=== PATIENT | male | born 2000 | race Asian ===

== ENCOUNTER 2023-07-16 14:47 | Emergency (ER) | payer MEDICAID ==
[~2023-07-16] VITALS: Ht 167.6 cm; Wt 58.5 kg
[2023-07-16 14:53] VITALS: BP_SYST 121; PULSE 62; RESP 18; TEMP 98.3; O2SAT 100
[2023-07-16] MEDS: PROCHLORPERAZINE EDISYLATE 10 MG/2 ML VIAL IM ONE (15:43)
[2023-07-16] MEDS: KETOROLAC TROMETHAMINE 60 MG/2 ML VIAL IM ONE (15:44)
[2023-07-16] MEDS ORDERED: IBUP-1969 PO (15:49)
[2023-07-16] MEDS ORDERED: PROC10TA29 PO (15:49)
[2023-07-16 16:40] VITALS: BP_SYST 119; PULSE 60; RESP 18; TEMP 98.3; O2SAT 100
== END 2023-07-16 16:40 | disposition home or self-care (01) ==
LOC: SED 14:47
DX: R51.9 Headache, unspecified (principal); R11.0 Nausea; Z79.899 Other long term (current) drug therapy
CPT/HCPCS: 99284; 96372; J1885; J0780